=== PATIENT | female | born 1965 ===

== ENCOUNTER 2024-12-12 08:16 | Inpatient (IN) ==
[2024-12-12] MEDS ORDERED: IOPAMIDOL 100 ML BOTTLE IV ONE (08:17)
[2024-12-12] MEDS: ONDANSETRON 4 MG/2 ML VIAL IV ONE (08:32)
[2024-12-12] MEDS: 0.9 % SODIUM CHLORIDE 1,000 ML IV ONE (08:32)
[2024-12-12] MEDS: PANTOPRAZOLE 40 MG VIAL IV ONE (08:33)
[2024-12-12] MEDS: LORazepam 2 MG/ML VIAL IV ONE (08:40)
[2024-12-12 08:48] LABS: Basophils # (Auto) 0.02 K/mcL (0.00-0.30); Basophils % (Auto) 0.1 % (0.0-2.0); Eosinophils # (Auto) 0.02 K/mcL (0.00-0.70); Eosinophils % (Auto) 0.1 % (0.0-7.0); Hematocrit 35.5 % (34.1-44.9); Hemoglobin 10.9 g/dL (11.2-15.7); Lymphocytes # (Auto) 1.37 K/mcL (1.50-4.80); Lymphocytes % (Auto) 8.4 % (15.5-49.0); Mean Cell Volume 89.4 fL (80.0-100.0); Mean Corpuscular HGB Conc 30.7 g/dL (31.0-36.0); Mean Platelet Volume 9.1 fL (8.8-12.5); Monocytes # (Auto) 1.02 K/mcL (0.10-0.90); Monocytes % (Auto) 6.3 % (1.0-12.0); Neutrophils % (Auto) 84.9 % (38.0-78.0); Platelet Count 390 K/mcL (140-440); RBC 3.97 M/mcL (3.59-5.38); Red Cell Distribution Width 17.7 % (11.5-14.5); WBC 16.3 K/mcL (4.5-11.0)
[2024-12-12] MEDS: methylPREDNISolone SOD SUCC 125 MG/2 ML VIAL IV ONE (09:07)
[2024-12-12] MEDS: IPRATROPIUM/ALBUTEROL 3 ML AMPUL.NEB NEB ONE (09:14)
[2024-12-12 09:38] LABS: ALT/SGPT 13 U/L (<40); AST/SGOT 21 U/L (<32); Albumin/Globulin Ratio 1.4 (1.0-2.3); Alkaline Phosphatase 80 U/L (39-117); Bilirubin,Total 0.2 mg/dL (0.1-1.0); Blood Urea Nitrogen 18 mg/dL (6-20); Calcium 8.9 mg/dL (8.6-10.4); Carbon Dioxide 26 mmol/L (22-30); Chloride 103 mmol/L (96-108); Globulin 2.9 gm/dL (2.2-3.7); Glomerular Filtration Rate 99; Glucose 159 mg/dL (70-105); Potassium 4.1 mmol/L (3.3-5.1); Sodium 138 mmol/L (133-145)
[2024-12-12] MEDS: FUROSEMIDE 40 MG/4 ML VIAL IV ONE (09:58)
[2024-12-12] MEDS: diphenhydrAMINE 50 MG/ML VIAL IV ONE (09:58)
[2024-12-12] MEDS: cefTRIAXone 2 GM in DEXTROSE 5% IN WATER 50 ML IV ONE (10:47)
[2024-12-12] MEDS: AZITHROMYCIN 500 MG in 0.9 % SODIUM CHLORIDE 250 ML IV ONE (11:07)
[2024-12-12] MEDS ORDERED: MAG HYDROX/AL HYDROX/SIMETH 30 ML ORAL.SUSP PO PRN (14:01)
[2024-12-12] MEDS ORDERED: ONDANSETRON 4 MG/2 ML VIAL IV PRN (14:01)
[2024-12-12] MEDS ORDERED: METOCLOPRAMIDE 10 MG/2 ML VIAL IV PRN (14:01)
[2024-12-12] MEDS ORDERED: POLYETHYLENE GLYCOL 3350 17 GM PACKET PO PRN (14:01)
[2024-12-12] MEDS: 0.9 % SODIUM CHLORIDE 10 ML SYRINGE IV SCH (14:05)
[2024-12-12] MEDS: ACETAMINOPHEN 325 MG TABLET PO PRN (15:17)
[2024-12-12] MEDS: IPRATROPIUM/ALBUTEROL 3 ML AMPUL.NEB NEB SCH (15:37)
[2024-12-12] MEDS: LORazepam 1 MG TABLET PO ONE (16:14)
[2024-12-12] MEDS: MELATONIN 3 MG TABLET PO SCH (20:41)
[2024-12-12] MEDS: ESCITALOPRAM 20 MG TABLET PO ONE (20:42)
[2024-12-12] MEDS: HEPARIN 5,000 UNIT/ML VIAL SQ SCH (20:42)
[2024-12-12] MEDS: GABAPENTIN 300 MG CAPSULE PO SCH (20:42)
[2024-12-12] MEDS: DOXYCYCLINE 100 MG in DEXTROSE 5% IN WATER 100 ML IV SCH (20:43)
[2024-12-12] MEDS: SENNOSIDES 1 TABLET PO SCH (20:43)
[2024-12-13 05:56] LABS: Basophils # (Auto) 0.01 K/mcL (0.00-0.30); Basophils % (Auto) 0.1 % (0.0-2.0); Eosinophils # (Auto) 0 K/mcL (0.00-0.70); Eosinophils % (Auto) 0 % (0.0-7.0); Hematocrit 33.6 % (34.1-44.9); Hemoglobin 10.3 g/dL (11.2-15.7); Lymphocytes # (Auto) 2.28 K/mcL (1.50-4.80); Lymphocytes % (Auto) 12.3 % (15.5-49.0); Mean Cell Volume 88.9 fL (80.0-100.0); Mean Corpuscular HGB Conc 30.7 g/dL (31.0-36.0); Mean Platelet Volume 9.5 fL (8.8-12.5); Monocytes % (Auto) 3.2 % (1.0-12.0); Neutrophils % (Auto) 84.2 % (38.0-78.0); Platelet Count 398 K/mcL (140-440); RBC 3.78 M/mcL (3.59-5.38); Red Cell Distribution Width 17.6 % (11.5-14.5); WBC 18.6 K/mcL (4.5-11.0)
[2024-12-13 06:03] LABS: Blood Urea Nitrogen 16 mg/dL (6-20); C-Reactive Protein 8.56 mg/dL (0.03-0.80); Calcium 10.1 mg/dL (8.6-10.4); Carbon Dioxide 27 mmol/L (22-30); Chloride 103 mmol/L (96-108); Glomerular Filtration Rate 94; Glucose 142 mg/dL (70-105); Potassium 4.2 mmol/L (3.3-5.1); Sodium 141 mmol/L (133-145)
[2024-12-13] MEDS: PANTOPRAZOLE 40 MG PACKET PO SCH (07:29)
[2024-12-13] MEDS ORDERED: methylPREDNISolone SOD SUCC 125 MG/2 ML VIAL IV SCH (09:00)
[2024-12-13] MEDS: FAMOTIDINE 20 MG TABLET PO SCH (09:25)
[2024-12-13] MEDS: cefTRIAXone 1 GM VIAL IV SCH (09:25)
[2024-12-13] MEDS: ESCITALOPRAM 20 MG TABLET PO SCH (09:25)
[2024-12-13] MEDS: methylPREDNISolone SOD SUCC 125 MG/2 ML VIAL IV SCH (09:26)
[2024-12-13] MEDS: IPRATROPIUM/ALBUTEROL 3 ML AMPUL.NEB NEB SCH (12:27)
[2024-12-14 05:55] LABS: Basophils # (Auto) 0.01 K/mcL (0.00-0.30); Basophils % (Auto) 0.1 % (0.0-2.0); Eosinophils # (Auto) 0.01 K/mcL (0.00-0.70); Eosinophils % (Auto) 0.1 % (0.0-7.0); Hematocrit 33.4 % (34.1-44.9); Hemoglobin 10.1 g/dL (11.2-15.7); Lymphocytes # (Auto) 3.04 K/mcL (1.50-4.80); Lymphocytes % (Auto) 20.4 % (15.5-49.0); Mean Cell Volume 89.3 fL (80.0-100.0); Mean Corpuscular HGB Conc 30.2 g/dL (31.0-36.0); Mean Platelet Volume 9.3 fL (8.8-12.5); Monocytes # (Auto) 0.69 K/mcL (0.10-0.90); Monocytes % (Auto) 4.6 % (1.0-12.0); Neutrophils % (Auto) 74.7 % (38.0-78.0); Platelet Count 402 K/mcL (140-440); RBC 3.74 M/mcL (3.59-5.38); Red Cell Distribution Width 17.7 % (11.5-14.5); WBC 14.9 K/mcL (4.5-11.0)
[2024-12-14 06:21] LABS: C-Reactive Protein 3.84 mg/dL (0.03-0.80)
[2024-12-14 06:22] LABS: ALT/SGPT 11 U/L (<40); AST/SGOT 14 U/L (<32); Albumin 3.9 gm/dL (3.2-5.2); Albumin/Globulin Ratio 1.2 (1.0-2.3); Alkaline Phosphatase 73 U/L (39-117); Bilirubin,Direct < 0.2 mg/dL (0-0.3); Bilirubin,Total < 0.2 mg/dL (0.1-1.0); Blood Urea Nitrogen 16 mg/dL (6-20); Calcium 9.7 mg/dL (8.6-10.4); Carbon Dioxide 26 mmol/L (22-30); Chloride 105 mmol/L (96-108); Globulin 3.3 gm/dL (2.2-3.7); Glomerular Filtration Rate 99; Glucose 103 mg/dL (70-105); Lactate Dehydrogenase 137 U/L (135-225); Phosphorous 2.6 mg/dL (2.5-4.5); Potassium 4.2 mmol/L (3.3-5.1); Sodium 140 mmol/L (133-145); Triglycerides 120 mg/dL (<150)
[2024-12-14] MEDS: IPRATROPIUM/ALBUTEROL 3 ML AMPUL.NEB NEB PRN (20:23)
[2024-12-15 05:44] LABS: Basophils # (Auto) 0.01 K/mcL (0.00-0.30); Basophils % (Auto) 0.1 % (0.0-2.0); Eosinophils # (Auto) 0.03 K/mcL (0.00-0.70); Eosinophils % (Auto) 0.3 % (0.0-7.0); Hematocrit 34.7 % (34.1-44.9); Hemoglobin 10.4 g/dL (11.2-15.7); Lymphocytes # (Auto) 3.89 K/mcL (1.50-4.80); Lymphocytes % (Auto) 35.2 % (15.5-49.0); Mean Cell Volume 90.8 fL (80.0-100.0); Mean Platelet Volume 9.3 fL (8.8-12.5); Monocytes # (Auto) 0.65 K/mcL (0.10-0.90); Monocytes % (Auto) 5.9 % (1.0-12.0); Neutrophils % (Auto) 58.4 % (38.0-78.0); Platelet Count 406 K/mcL (140-440); RBC 3.82 M/mcL (3.59-5.38); Red Cell Distribution Width 17.7 % (11.5-14.5); WBC 11.1 K/mcL (4.5-11.0)
== END 2024-12-15 11:25 | disposition home or self-care (01) | DRG 189 ==
LOC: ED 08:16 → MEDSUR 13:42
PROVIDERS: ADMIT Student in an Organized Health Care Education/Training Program; ATTEND Internal Medicine